=== PATIENT | male | born 1985 | race African-American/Black ===

== ENCOUNTER 2017-06-14 13:07 | Emergency (ER) | payer BC ==
[~2017-06-14] VITALS: Ht 175.3 cm; Wt 81.7 kg
[~2017-06-14 13:07] MED LIST: ACETAMINOPHEN325 M1 PO; ATIVAN0.5 MG PO; BC POWDER PACK1 EAC1 PO; IBUPROFEN 600600 M1 PO; IBUPROFEN 800800 MG PO; TAMIFLU75 MG PO; TESSALON PERLE100 M1 PO; TESSALON PERLE100 MG PO; VENTOLIN HFA 1818 GM INH; ZOFRAN ODT4 MG PO; ZPAK PO
[2017-06-14 13:45] LABS: HEMOGLOBIN 13.3 gm/dL (14.0-18.0)
[2017-06-14 13:46] LABS: HEMATOCRIT 40.5 % (42.0-52.0); MCH 28.6 pg (26.0-34.0); MCHC 32.8 g/dL (28.0-37.0); RBC 4.65 mil/uL (4.50-6.00); RDW 12.9 % (10.5-14.5); WBC 5.2 thou/uL (4.0-11.0)
[2017-06-14 13:52] LABS: CALCIUM 8.8 mg/dL (8.5-10.1); CREATININE 1.2 mg/dL (0.7-1.3); POTASSIUM 4.5 mmol/L (3.5-5.1)
[2017-06-14 13:58] LABS: PROTIME 10.5 Seconds (9.3-11.4)
[2017-06-14] MEDS ORDERED: HYDROCODONE-AP1 EAC6 PO (15:02)
[2017-06-14 15:05] VITALS: BP 102/60
== END 2017-06-14 15:23 | disposition home or self-care (01) ==
LOC: ER 13:07
PROVIDERS: Emergency Medicine
DX: G89.18 Other acute postprocedural pain (principal); Z96.7 Presence of other bone and tendon implants